=== PATIENT | female | born 1980 | race Caucasian/White ===

== ENCOUNTER 2017-05-07 11:35 | Emergency (ER) | payer SELFPAY ==
[2017-05-07 11:48] VITALS: BP 113/67
--- NOTE | 2017-05-07 13:21 | Emergency Department Report ---
ED Anxiety HPI - General Chief Complaint: Anxiety Stated Complaint: NERVOUS Time Seen by Provider: 05/07/17 12:44 Source: patient Mode of arrival: Ambulatory - History of Present Illness Initial Comments: 36-year-old female past medical history hypothyroid, anxiety presents with complaint of severe anxiety for the last 1-2 weeks. Patient states that over the course of the last 3 months she has had several personal tragedies. Patient is awake alert and oriented 3 denies any suicidal or homicidal ideation at this time denies any auditory or visual hallucinations. Denies alcohol or drug use. Patient accompanied by at bedside. Patient is fully lucid and able to provide a detailed history. Patient speaks [place] which I speak fluently. MD Complaint: anxiety Onset/Timin Place: home Severity: moderate Quality: constant Provoking factors: none known - Related Data Home Medications: Previous Rx's Medication Instructions Recorded Last Taken Type Diazepam [Valium] 5 mg PO Q12H PRN #12 tablet 05/07/17 Unknown Rx Allergies/Adverse Reactions: Allergies Allergy/AdvReac Type Severity Reaction Status Date / Time No Known Allergies Allergy Unverified 05/07/17 11:48 ED Review of Systems ROS: Stated complaint: NERVOUS Other details as noted in HPI Constitutional: denies: chills, fever Eyes: denies: eye pain, eye discharge, vision change ENT: denies: ear pain, throat pain Respiratory: denies: cough, shortness of breath, wheezing Cardiovascular: denies: chest pain, palpitations Endocrine: no symptoms reported Gastrointestinal: denies: abdominal pain, nausea, diarrhea Genitourinary: denies: urgency, dysuria, discharge Musculoskeletal: denies: back pain, joint swelling, arthralgia Skin: denies: rash, lesions Neurological: denies: headache, weakness, paresthesias Psychiatric: anxiety. denies: depression Hematological/Lymphatic: denies: easy bleeding, easy bruising ED Past Medical Hx - Past Medical History Previous Medical History?: No - Social History Smoking Status: Never Smoker Substance Use Type: None - Medications Home Medications: Home Medications Medication Instructions Recorded Confirmed Last Taken Type Diazepam [Valium] 5 mg PO Q12H PRN #12 tablet 05/07/17 Unknown Rx ED Physical Exam - General Limitations: Language Barrier General appearance: alert, in no apparent distress - Head Head exam: Present: atraumatic, normocephalic - Eye Eye exam: Present: normal appearance, PERRL, EOMI - ENT ENT exam: Present: mucous membranes moist - Neck Neck exam: Present: normal inspection - Respiratory Respiratory exam: Present: normal lung sounds bilaterally. Absent: respiratory distress - Cardiovascular Cardiovascular Exam: Present: regular rate, normal rhythm. Absent: systolic murmur, diastolic murmur, rubs, gallop - GI/Abdominal GI/Abdominal exam: Present: soft, normal bowel sounds - Extremities Exam Extremities exam: Present: normal inspection - Back Exam Back exam: Present: normal inspection - Neurological Exam Neurological exam: Present: alert, oriented X3 - Psychiatric Psychiatric exam: Present: normal affect, normal mood - Skin Skin exam: Present: warm, dry, intact, normal color. Absent: rash ED Course Vital Signs 05/07/17 11:39 Temperature 97.9 F Pulse Rate 90 Respiratory 16 Rate Blood Pressure 113/67 O2 Sat by Pulse 99 Oximetry ED Medical Decision Making - Medical Decision Making A/P: Anxiety attack 1-short course valium 2-follow-up with primary care and psychiatry 3-patient has no suicidal or homicidal ideation or hallucinations at this time 4- Critical care attestation.: If time is entered above; I have spent that time in minutes in the direct care of this critically ill patient, excluding procedure time. ED Disposition Clinical Impression: Anxiety Disposition: DC-01 TO HOME OR SELFCARE Is pt being admited?: No Does the pt Need Aspirin: No Condition: Stable Instructions: Anxiety (ED), Generalized Anxiety Disorder (ED), Post Traumatic Stress Disorder (ED) Prescriptions: Diazepam [Valium] 5 mg PO Q12H PRN #12 tablet PRN Reason: Anxiety Referrals: DAMARIS HAMMOND, [LAB/CONTRACT] - 3-5 Days Forms: Accompanied Note, Work/School Release Form(ED) Time of Disposition: 13:21 Print Language: CITIZEN OF [place]
[2017-05-07] MEDS ORDERED: VALIUM PO ONE (13:24)
== END 2017-05-07 14:02 | disposition home or self-care (01) ==
LOC: ED 11:35
DX: F41.9 Anxiety disorder, unspecified (principal); E03.9 Hypothyroidism, unspecified
CPT/HCPCS: 99282